=== PATIENT | female | born 1995 | race Caucasian/White ===

== ENCOUNTER 2017-07-25 02:47 | Emergency (ER) | payer OTHER ==
[2017-07-25] MEDS ORDERED: NS 1,000 ML IV ONE (02:55)
[2017-07-25] MEDS ORDERED: ONDANSETRON 4 MG/2 ML VIAL IVP ONE (02:55)
--- NOTE | 2017-07-25 02:55 | EDPHY ---
H & P HPI/ROS: HPI CHIEF COMPLAINT: Alcohol Intoxication HISTORY OF PRESENT ILLNESS: This patient is a year-old female, presents to the emergency room with acute alcohol intoxication. She presents by EMS to the emergency room for acute alcohol intoxication. Unknown exactly how much she drank. However she is highly intoxicated. No trauma noted. No drug intoxication reported. She was vomiting. Past Medical History: Unknown medical history Past Surgical History: Unknown surgical history Social History: Unknown social history Family History: Unknown ROS REVIEW OF SYSTEMS: Limited due to patient's acute alcohol intoxication Exam Constitutional Intoxicated, triage nursing summary reviewed, vital signs reviewed, Sleepy, smells of alcohol Eyes normal conjunctivae and sclera, horizontal beating nystagmus consistent acute alcohol intoxication, otherwise pupils equal and react to light HENT normal inspection, atraumatic, moist mucus membranes, no epistaxis, neck supple/ no meningismus, no raccoon eyes. Respiratory clear to auscultation bilaterally, normal breath sounds, no respiratory distress, no wheezing. Cardiovascular rate normal, regular rhythm, no murmur, no edema, distal pulses normal. Gastrointestinal soft, non-tender, no rebound, no guarding, normal bowel sounds, no distension, no pulsatile mass. Genitourinary no CVA tenderness. Musculoskeletal no midline vertebral tenderness, full range of motion, no calf swelling, no tenderness of extremities, no meningismus, good pulses, neurovascularly intact. Skin pink, warm, & dry, no rash, skin atraumatic. Neurologic sleepy, intoxicated with alcohol,, alert and oriented x 3, AAOx3, moves all 4 extremities equally, motor intact, sensory intact, CN II-XII intact , , normal vision, normal speech. Psychiatric normal mood/affect. Heme/Lymph/Immune no lymphadenopathy. Differential Diagnosis: Includes but is not limited to in a particular order acute alcohol intoxication, alcohol abuse, dehydration, electrolyte abnormality , nausea vomiting from acute alcohol intoxication Medical Decision Making: Plan for this patient IV establishment blood draw, IV fluid bolus, Zofran 4 mg for nausea, serum alcohol level. Monitor for sobriety or worsening of condition. Re-evaluation: Stable gait, clinically sober. No complaints. Stable for d/c. Source: Patient, EMS Constitutional: Initial Vital Signs Temperature (C) 36.7 C 07/25/17 02:54 Heart Rate 81 07/25/17 02:54 Respiratory Rate 16 07/25/17 02:54 Blood Pressure 109/63 07/25/17 02:54 O2 Sat (%) 96 07/25/17 02:54 O2 Delivery Mode Room Air Allergies/Adverse Reactions: No Known Allergies Allergy (Unverified 07/25/17 02:54) Home Medications: Medication Instructions Recorded NK [No Known Home Meds] 07/25/17 Medical Decision Making - Data Points Medications Given: Discontinued Medications Sodium Chloride (Ns) 1,000 mls @ 0 mls/hr IV ONCE ONE PRN Reason: Wide Open Stop: 07/25/17 02:56 Last Admin: 07/25/17 03:18 Dose: 1,000 mls Ondansetron HCl (Zofran) 4 mg IVP EDNOW ONE Stop: 07/25/17 02:56 Last Admin: 07/25/17 03:18 Dose: 4 mg Departure - Departure Disposition: Home, Routine, Self-Care Clinical Impression: Alcoholic intoxication Condition: Good Instructions: Alcohol Intoxication (ED), Abuse of Alcohol (ED) Referrals: Patient,NotPresent [Unknown] - As per Instructions
[2017-07-25 02:57] VITALS: RESP 16; TEMP 98.1
[2017-07-25 04:08] LABS: ETHANOL SERUM 169 mg/dL (0-10)
[2017-07-25 06:05] VITALS: BP 104/67; PULSE 88; O2SAT 97
== END 2017-07-25 06:16 | disposition home or self-care (01) ==
LOC: EDBD 02:47
PROC: 3E0337Z Introduction of Electrolytic and Water Balance Substance into Peripheral Vein, Percutaneous Approach (ICD-10-PCS; principal; 2017-07-25)
DX: F10.129 Alcohol abuse with intoxication, unspecified (principal); R11.10 Vomiting, unspecified
CPT/HCPCS: 96374; G0480